=== PATIENT | male | born 1965 ===

== ENCOUNTER → 2021-06-18 | Outpatient (CLI) | payer MEDICARE ==
[~2021-06-18] MED LIST: ASPI-630 PO; ATOR10TA60 PO; CLOP75TA PO; INSU100V13 SQ; INSU100V6 SQ; LIPA1CAP2 PO; MAGN400C PO; METO25TA4 PO; MUPI22OI2 TP; OMEP20CA16 PO; POTA-121 PO
--- NOTE | 2021-06-18 13:00 | PDOC1 ---
INITIAL PAIN CONSULT DATE OF SERVICE: DOS: DATE: 06/18/21 TIME: 12:53 CHIEF COMPLAINT: Chief Complaint: Low back and left lower extremity pain HISTORY OF PRESENT ILLNESS: 55-year-old male presents history of pain low back left lower extremity for about 4 months or so not result of any specific injury activities were but recently had extensive bilateral revascularization in the femoral-popliteal and tibial distributions which is still healing to some extent but doing much better patient reports his feet were immediately more warm with much better perfusion and decrease in pain but he has a constant tingling down his left foot and the pain is now becoming more noticeable in the low back radiating the posterior gluteus posterior lateral thigh posterior calf into the ankle different than what it was prior to his vascular bypass. Patient reports now the pain is sharp and stabbing in the back intermittent intensity worse with walking standing changing positions gets better with sitting or resting worse with standing walking or standing in 1 place patient reports wakes him sleep about 3-4 times a night can affect his bowel bladder control but no incontinence just urgency. Patient reports does affect his body walk significantly the left leg when he can walk for 5 to 10 minutes he must sit down with the pain in the legs better than he starts over again that he gets up and walks again patient has had physical therapy and is currently just started just about a week ago but feels already that it may be slightly better patient has been taking oxycodone as well as Tylenol extra strength and gabapentin as well as which do help decrease the pain. Patient rates her disability rating 0-10 10 being the worst is a 6 with family home responsibilities and lack support activities 8 with recreation and social activity 10 with occupation section behavior 5 with self-care activities. Patient not had any diagnostic studies since the revascularization procedure. PAST MEDICAL HISTORY: PMH: ,Hypertension, type 1 diabetes, arthritis, neuropathy, pancreatitis, atrial fibrillation, alcoholism PREVIOUS SURGERIES: Past Surgical Hx: Bile duct stent placement 2014, bilateral lower extremity stents and revascularization January 2021 CURRENT MEDICATIONS: Current Meds: Active Scripts Medications Dose Route/Sig Max Daily Dose Days Date Category Humalog (Insulin Lispro) 100 Unit/1 Ml Vial Unknown Dose SQ TIDWMEALS 06/18/21 Reported Omeprazole 20 Mg Capsule.dr 1 Cap PO DAILY 06/18/21 Reported Mupirocin Ointment (Mupirocin) 22 Gm Oint...g. 1 Lauren TP TID 06/18/21 Reported Klor-Con M20 (Potassium Chloride) 20 Meq Tab.er.prt 1 Tab PO DAILY 30 06/18/21 Reported Aspirin 81 Mg Tab.chew 1 Tab PO DAILY 06/18/21 Reported Clopidogrel (Clopidogrel Bisulfate) 75 Mg Tablet 1 Tab PO DAILY 06/18/21 Reported Atorvastatin Calcium 10 Mg Tablet 1 Tab PO DAILY 06/18/21 Reported Magnesium (Magnesium Oxide) 400 Mg Capsule 1 Cap PO DAILY 30 06/18/21 Reported Levemir (Insulin Detemir) 100 Unit/1 Ml Vial 5 Unit SQ HS 06/18/21 Reported Jose Guadalupe Smith 6,000 Units Capsule (Lipase/Protease/Amylase) 1 Each Capsule. 1 Each PO TIDWMEALS 06/18/21 Reported Metoprolol Tartrate 25 Mg Tablet 1 Tab PO BID 06/18/21 Reported ALLERGIES; Allergies: Coded Allergies: citalopram (Verified Adverse Reaction, Unknown, 06/18/21) FAMILY HISTORY: Family Hx: No major medical problems or conditions that he is aware of. SOCIAL HISTORY: Social Hx: Patient has not had alcohol in over a year, smokes cigarettes less than a pack a day and has for the past 20+ years single lives locally in [facility] REVIEW OF SYSTEMS: ROS: Positive for those items mentioned in history of present illness, all systems are reviewed, otherwise negative ,and are complete full and well-documented on patient's chart. PHYSICAL EXAM: VS: Blood pressure 157/85 pulse 67 respirations 16 temperature 97.8 was Fahrenheit height is 5 foot 8 inches weight is 148 pounds PE: PHYSICAL EXAMINATION: GENERAL: The patient is awake, alert, oriented, appropriate, very pleasant in demeanor HEENT: Shows normocephalic, atraumatic. Extraocular movements are intact and symmetrical. Oral cavity: Mucous membranes moist and pink. NECK: Shows anterior throat supple without palpable lymphadenopathy noted. Swallow reflex symmetrical. CHEST: Shows normal on inspection. Breath sounds are clear bilaterally, distant but no rales rhonchi or wheezes auscultated. HEART: Shows S1, S2 clear. No murmurs auscultated. ABDOMEN: Soft, nontender, nondistended, obese. No palpable organomegaly is noted. No rebound or guarding demonstrated. BACK: Shows spine grossly in the midline. Normal-appearing cervical lordotic curvature. There is slightly increased thoracic kyphosis, some minor flattening of the lumbar lordotic curvature. Lumbar paraspinous muscles show symmetrical on inspection, on palpation shows some moderate tenderness diffusely throughout the upper, middle and lower distribution of the paraspinous muscles bilaterally and also into the lower thoracic paraspinous musculature, firm and tender, but without specific trigger points, without radiation of pain. The patient has good rotational motion of the lumbar spine, both laterally as well as extension and flexion without significant difficulty. No tenderness over the spinous processes, sacrum or sacroiliac regions. EXTREMITIES: Lower extremities show deep tendon reflexes 1 in the patellar and tendo calcaneus tendons. Motor exam is 5 on a scale of 5 with right dorsiflexion, extension, quadriceps and hamstring flexion and 4/5 on the left. Peripheral pulses are 1 posterior tibial. 1+ peripheral edema is noted bilaterally. Lower extremities are warm and dry to touch, equal in color and appearance. Patient has healing wounds on the medial aspect of the bilateral lower extremities without drainage or erythema. SKIN: Shows warm and dry, good turgor. No bruising throughout. IMPRESSION: Impression: 55-year-old male with approximate 4-month history increasing pain low back left lower extremity in a radicular fashion Status post revascularization bilateral lower extremities with good results Arthritis Hypertension Type 1 diabetes Atrial fibrillation Plan: Options were discussed with the patient occluding continued physical therapy could conservative management with medications as well as interventional techniques. Patient would like to pursue conservative therapies at this time and as he is only started his physical therapy 1 week ago we will give this more time to potentially improve his condition. If not significant improved after approximately a month of physical therapy patient will contact the office we did discuss potential interventional techniques at that time however will need to clear holding Plavix and will investigate that once physical therapy is had more time to work. Patient contact the office after approximate 4 weeks of physical therapy with progress note at that time. LASHON CESPEDES MD Jun 18, 2021 12:59
== END | disposition home or self-care (01) ==
LOC: PNCL 12:24
PROVIDERS: ATTEND Anesthesiology
DX: M54.50 Low back pain, unspecified (principal); M79.605 Pain in left leg; I10 Essential (primary) hypertension; I48.91 Unspecified atrial fibrillation; M19.90 Unspecified osteoarthritis, unspecified site; E10.40 Type 1 diabetes mellitus with diabetic neuropathy, unspecified; Z79.82 Long term (current) use of aspirin; Z79.4 Long term (current) use of insulin; Z79.899 Other long term (current) drug therapy; Z98.890 Other specified postprocedural states; Z88.8 Allergy status to other drugs, medicaments and biological substances
CPT/HCPCS: 99205; G0463

== ENCOUNTER → 2021-07-05 | Outpatient (CLI) | payer MEDICARE ==
--- NOTE | 2021-07-05 10:05 | KCIC ---
Clinical indications: Screening for metal within the orbits prior to an MRI study. A single Barker view of the orbits was performed. Findings: No metallic foreign body is seen within either orbit. The maxillary and frontal sinuses are clear. The orbital floors appear symmetric and are intact. Impression: No metallic foreign body is identified within either orbit. Electronically signed by: Greg Barbour MD (07/05/2021 10:02 AM) [id number]
--- NOTE | 2021-07-05 12:55 | KCIC ---
MRI of the lumbar spine without contrast 07/05/2021 CLINICAL HISTORY: Low back pain with bilateral leg pain. TECHNIQUE: Unenhanced T1-weighted and T2-weighted sagittal and axial and inversion recovery sagittal images of the lumbar spine were obtained. FINDINGS: Very mild S-shaped curvature of the thoracolumbar spine is seen. Degenerative signal change s are seen involving all of the disks of the lumbar spine. Degenerative signal changes are seen withi n the marrow surrounding these discs. Loss of height of the L4-5 and L5-S1 discs is noted. A 2.8 cm s omewhat oval-shaped area of increased signal intensity is seen involving the S2 vertebral body on the T2-weighted and inversion recovery images. This demonstrates decreased decreased signal intensity on the T1-weighted images. This likely represents a hemangioma. The conus medullaris is normal morpholo gy, position, and signal characteristics. At the L1-2 disc space there is a minimal generalized disc bulge. Degenerative changes are seen invol ving the facet joints bilaterally. These findings do not result in significant central spinal canal o r neural foraminal stenosis. At the L2-3 disc space there is a mild to moderate generalized disc bulge. Degenerative changes are s een involving the facet joints bilaterally. There is mild ligamentum flavum hypertrophy bilaterally. There is prominence of posterior epidural fat. These findings when combined result in mild central sp inal canal stenosis. No neural foraminal stenosis is seen. At the L3-4 disc space there is a mild to moderate generalized disc bulge. Degenerative changes are s een involving the facet joints bilaterally. There is mild ligament flavum hypertrophy bilaterally. Th ere are small facet joint effusions bilaterally. These findings when combined result in moderate cent ral spinal canal stenosis. No neural foraminal stenosis is seen. At the L4-5 disc space is a moderate generalized disc bulge. This is eccentric to the right. Degenera tive changes are seen involving the facet joints bilaterally. There is mild ligament flavum hypertrop hy bilaterally. There is prominence of posterior epidural fat. These findings when combined result in mild to moderate central spinal canal stenosis. No neural foraminal stenosis is seen. At the L5-S1 disc space there is a mild generalized disc bulge. Superimposed on this disc bulge is a right paracentral focal disc herniation. This measures 5 mm in AP diameter. Degenerative changes are seen involving the facet joints bilaterally. There is mild ligamentum flavum hypertrophy bilaterally. These findings when combined result in mild to moderate right greater than left central spinal canal stenosis. The disc herniation appears to impinge upon the right S1 nerve root within the right later al aspect of the central spinal canal. No neural foraminal stenosis is seen. IMPRESSION: The changes of degenerative disc disease are seen throughout the lumbar spine. These find ings results in mild central spinal canal stenosis at L2-3, moderate central spinal canal stenosis at L3-4, mild to moderate central spinal canal stenosis at L4-5 and mild to moderate right greater than left central spinal canal stenosis at L5-S1. At the L5-S1 disc space a right paracentral focal disc herniation is seen which appears to impinge upon the right S1 nerve root within the right lateral asp ect of the central spinal canal. Electronically signed by: Kar Gil MD (07/05/2021 12:52 PM) [id number]
== END | disposition home or self-care (01) ==
LOC: KCIC MRI 09:16
PROVIDERS: ATTEND Anesthesiology
DX: M51.16 Intervertebral disc disorders with radiculopathy, lumbar region (principal); M48.061 Spinal stenosis, lumbar region without neurogenic claudication; M51.27 Other intervertebral disc displacement, lumbosacral region; M43.8X5 Other specified deforming dorsopathies, thoracolumbar region
CPT/HCPCS: 70030; 72148

== ENCOUNTER → 2021-07-26 | Outpatient (CLI) | payer MEDICARE ==
[~2021-07-26] MED LIST changes: +APIX5TAB PO
--- NOTE | 2021-07-26 11:50 | PDOC ---
Progress Note - Pain Clinic Date of Service: DOS: DATE: 07/26/21 TIME: 11:46 Diagnosis: Dx: Lumbar radiculopathy and lumbar degenerative disc disease History or Present Illness: HPI: 56-year-old male returns for follow-up status post initial evaluation patient has completed physical therapy now and reports somewhat better with about 20% with the pain in her low back and bilateral lower extremity slightly worse on the right than the left we did also have an MRI scan which we discussed with him in detail today showing mild central spinal canal stenosis at L2-3 moderate central spinal canal stenosis L3-4 moderate central spinal canal stenosis L4-5 mild to moderate right greater than left central spinal canal stenosis at L5-S1 with a right paracentral disc herniation at L5-S1 appears to impinge upon the right S1 nerve root. Patient reports still significant pain in the low back more in the right than the left lower extremities posterior gluteus posterior thigh posterior calf as well as lateral thighs anterior calf patient ports worse with walking standing and while the physical therapy did help to strengthen his legs fairly significantly his pain is still fairly unchanged. Patient reports still wakes him from sleep about once every 6 hours or so but most nights he sleeps fairly well worse with walking standing changing positions. Patient reports pain is 8 on scale 10 is worse over the past week 6 on average for its least and is a 4 today. Patient reports that sharp tight in the back shooting in the legs and tingling burning some cramping stabbing pain as well in the lower extremities again more on the right than the left. Patient reports no bowel or bladder incontinence. Physical Exam: VS: Blood pressure 160/90 pulse 60 respiration temperature 97.8 F weight 152 pounds PE: PHYSICAL EXAMINATION: GENERAL: The patient is awake, alert, oriented, appropriate, very pleasant in demeanor HEENT: Shows normocephalic, atraumatic. Extraocular movements are intact and symmetrical. Oral cavity: Mucous membranes moist and pink. Dentition is intact. NECK: Shows anterior throat supple without palpable lymphadenopathy noted. Swallow reflex symmetrical. CHEST: Shows normal on inspection. Breath sounds are clear bilaterally, distant but no rales or rhonchi auscultated. HEART: Shows S1, S2 clear. No murmurs auscultated. ABDOMEN: Soft, nontender, nondistended. No palpable organomegaly is noted. BACK: Shows spine grossly in the midline. Normal-appearing cervical lordotic curvature. There is increased thoracic kyphosis, some flattening of the lumbar lordotic curvature. Lumbar paraspinous muscles show symmetrical on inspection, on palpation shows some moderate tenderness diffusely throughout the upper, middle and lower distribution of the paraspinous muscles, but without specific trigger points, without radiation of pain. The patient has good rotational motion of the lumbar spine, both laterally as well as extension and flexion without significant difficulty. EXTREMITIES: Lower extremities show deep tendon reflexes 1+ in the patellar and tendo calcaneus tendons. Motor exam is 4 on a scale of 5 with right dorsifl exion, extension, quadriceps and hamstring flexion and 4/5 on the left. Peripheral pulses are 1+ posterior tibial. No peripheral edema is noted bilaterally. Lower extremities are warm and dry to touch, equal in color and appearance. SKIN: Shows warm and dry, good turgor. No edema. No sores, rashes or bruising throughout. Procedure: Procedure: Options were discussed with patient. Patient chart reviews his current medication regimen updated current review of systems updated today as well. We will check with patient's prescribing physician regarding holding his Eliquis for 3 days prior to potential interventional techniques. Patient continue with the Eliquis until we get clearance from his prescribing physician and will contact him at that time. In the meantime, patient continue with stretching strength exercises as tolerated. Medication Injected: Med Injected: None Condition at Discharge: Condition at Discharge: Condition at discharge is stable. LASHON CESPEDES MD Jul 26, 2021 11:50
== END | disposition home or self-care (01) ==
LOC: PNCL 10:45
PROVIDERS: ATTEND Anesthesiology
DX: M51.16 Intervertebral disc disorders with radiculopathy, lumbar region (principal); Z79.82 Long term (current) use of aspirin; Z79.4 Long term (current) use of insulin; Z79.899 Other long term (current) drug therapy; Z88.8 Allergy status to other drugs, medicaments and biological substances
CPT/HCPCS: 99212; G0463

== ENCOUNTER → 2021-08-03 | Outpatient (CLI) | payer MEDICARE ==
[~2021-08-03] MED LIST changes: +IOHEXOL 180 MG/ML 10 ML VIAL. ONE; +methylPREDNISolone ACETATE 40 MG/ML VIAL. ONE; +methylPREDNISolone ACETATE 80 MG/ML VIAL. ONE
--- NOTE | 2021-08-03 15:59 | PDOC ---
Progress Note - Pain Clinic Date of Service: DOS: DATE: 08/03/21 TIME: 15:56 Diagnosis: Dx: Lumbar radiculopathy with lumbar degenerative disc History or Present Illness: HPI: 56-year-old male returns for follow-up status post evaluation patient with pain low back and bilateral lower extremities worse on the left than the right but present bilaterally patient reports still significant pain with walking standing changing positions better with sitting or laying down generally not awaken from sleep at night patient reports pain in the low back and bilateral lower extremities again worse on the left side posterior gluteus posterior lateral thigh low anterior thigh anteromedial thigh medial lower leg into the feet and ankles bilaterally again worse on the left patient reports is an 8 on scale 10 is worse over the past week 6 on average/and is a 6 today. Patient tried the sharp shooting tingling at times cramping stabbing the back and radiating the lower extremities patient reports no bowel or bladder incontinence. Patient reports has been off of his Eliquis now for 6 days. Physical Exam: VS: Blood pressure is 161/72 pulse 59 respirations 18 temperature 97.7 F height is 5 foot 8 inches weight is 150 PE: PHYSICAL EXAMINATION: GENERAL: The patient is awake, alert, oriented, appropriate, very pleasant in demeanor HEENT: Shows normocephalic, atraumatic. Extraocular movements are intact and symmetrical. Oral cavity: Mucous membranes moist and pink. Dentition is intact. NECK: Shows anterior throat supple without palpable lymphadenopathy noted. Swallow reflex symmetrical. CHEST: Shows normal on inspection. Breath sounds are clear bilaterally, distant and coarse but no rales or rhonchi. HEART: Shows S1, S2 clear. No murmurs auscultated. ABDOMEN: Soft, nontender, nondistended. No palpable organomegaly is noted. BACK: Shows spine grossly in the midline. Normal-appearing cervical lordotic curvature. There is slightly increased thoracic kyphosis, some minor flattening of the lumbar lordotic curvature. Lumbar paraspinous muscles show symmetrical on inspection, on palpation shows some moderate tenderness diffusely throughout the upper, middle and lower distribution of the paraspinous muscles without specific trigger points, without radiation of pain. The patient has good rotational motion of the lumbar spine, both laterally as well as extension and flexion without significant difficulty. EXTREMITIES: Lower extremities show deep tendon reflexes 1+ in the patellar and tendo calcaneus tendons. Motor exam is 4 on a scale of 5 with right dorsiflexion, extension, quadriceps and hamstring flexion and 4/5 on the left. Peripheral pulses are 1+ posterior tibial. No peripheral edema is noted bilaterally. Lower extremities are warm and dry. SKIN: Shows warm and dry, good turgor. No edema. No sores, rashes or bruising throughout. Procedure: Procedure: Options were discussed with the patient. Patient's old chart was reviewed as his current medication regimen updated current review of systems updated today as well. We will proceed with a lumbar epidural steroid injection stable f luoroscopic guidance risks were discussed including but not limited to: Bleeding, infection, possibility of epidural hematoma and subsequent neurological compromise, dural puncture, headaches, spinal cord and/or nerve damage, side effects of steroid medication, and poor results regarding pain control. Patient understands and wished to proceed. Patient will return to the clinic in approximately 3 weeks for follow-up, was counseled return appointment, activity level, and side effect to be aware of. Medication Injected: Med Injected: Procedure is lumbar epidural steroid injection under local anesthetic using sterile prep and drape at the L4-5 level using C-arm fluoroscopic guidance in both AP and lateral views medications injected is 120 mg Depo-Medrol +10mL preservative-free normal saline and 2 mL contrast- condition at discharge is stable patient tolerated procedure well had no complications. Condition at Discharge: Condition at Discharge: Condition at discharge stable, patient tolerated procedure well and had no complications. LASHON CESPEDES MD Aug 03, 2021 15:59
--- NOTE | 2021-08-03 15:59 | PDOC4 ---
Procedure Note: ICD 10 Code: ICD 10 Code: M54.16 M51.36 M51.87 Procedure Note: Patient was consented for lumbar epidural steroid injection with fluoroscopic guidance risks were discussed including but not limited to: Bleeding, infection, possibility of epidural hematoma and subsequent neurological compromise, dural p uncture, headaches, spinal cord and/or nerve damage, side effects of steroid medication, and poor results regarding pain control. Patient understands and wished to proceed. Procedure is lumbar epidural steroid injection under local anesthetic using sterile prep and drape at the L4-5 level using C-arm fluoroscopic guidance in both AP and lateral views medications injected is 120 mg Depo-Medrol +10mL preservative-free normal saline and 2 mL contrast- condition at discharge is stable patient tolerated procedure well had no complications. LASHON CESPEDES MD Aug 03, 2021 15:59
== END | disposition home or self-care (01) ==
LOC: PNCL 14:34
PROVIDERS: ATTEND Anesthesiology
DX: M51.16 Intervertebral disc disorders with radiculopathy, lumbar region (principal); G89.29 Other chronic pain
CPT/HCPCS: 62323; J1030; J1040; Q9965

== ENCOUNTER 2022-02-01 11:17 | Emergency (ER) | payer MEDICARE ==
[~2022-02-01] VITALS: Ht 172.7 cm; Wt 63.6 kg
[~2022-02-01 11:17] MED LIST changes: +APIX2.5T PO; +BUPR150T8 PO; +DAPT350V IV; +GABA300C18 PO; -IOHEXOL 180 MG/ML 10 ML VIAL. ONE; +MERO500V24 IV; +OXYC1TAB15 PO; -methylPREDNISolone ACETATE 40 MG/ML VIAL. ONE; -methylPREDNISolone ACETATE 80 MG/ML VIAL. ONE
[2022-02-01 12:34] LABS: BASO # 0.1 x10^3/uL (0.0-0.2); BASO % 1 % (0-3); EOS # 0.9 x10^3/uL (0.0-0.7); EOS % 8 % (0-3); HEMATOCRIT 23.3 % (39.0-53.0); HEMOGLOBIN 7.9 g/dL (13.0-17.5); LYMPH # 1.1 x10^3/uL (1.0-4.8); LYMPH % 9 % (24-48); MEAN CORPUSCULAR HEMOGLOBIN 30 pg (25-35); MEAN CORPUSCULAR HGB CONC 34 g/dL (31-37); MEAN CORPUSCULAR VOLUME 90 fL (79-100); MONO # 1.3 x10^3/uL (0.0-1.1); MONO % 11 % (0-9); NEUT # 8.5 x10^3/uL (1.8-7.7); NEUT % 71 % (31-73); PLATELET COUNT 362 x10^3/uL (140-400); RED CELL DISTRIBUTION WIDTH 15.5 % (11.5-14.5); WHITE BLOOD COUNT 11.9 x10^3/uL (4.0-11.0)
[2022-02-01] MEDS ORDERED: [UNRECOGNIZED DRUG - CODE] PO (12:54)
[2022-02-01 13:22] VITALS: BP 160/77
--- NOTE | 2022-02-01 16:07 | PHYS DOC ---
Past Medical History Past Medical History: DVT, Vascular Disease Past Surgical History: Other Additional Past Surgical Histo: Toes amputation Smoking Status: Current Some Day Smoker Alcohol Use: None General Adult EDM: Chief Complaint: WOUND CHECK HPI: HPI: 56-year-old male recent right lower extremity toe amputation and tib-fib bypass, presents with wound check given history of notable arterial bleeding from the wound 3 days ago. Patient denies fever, chills, chest pain, shortness of breath, nausea, vomiting, abdominal pain. Denies any new pain or swelling to the right lower extremity Review of Systems: Review of Systems: Constitutional: Denies fever or chills. [] Eyes: Denies change in visual acuity. [] HENT: Denies nasal congestion or sore throat. [] Respiratory: Denies cough or shortness of breath. [] Cardiovascular: Denies chest pain or edema. [] GI: Denies abdominal pain, nausea, vomiting, bloody stools or diarrhea. [] : Denies dysuria. [] Musculoskeletal: Denies back pain or joint pain. [] +RLE wound Integument: Denies rash. [] Neurologic: Denies headache, focal weakness or sensory changes. [] Endocrine: Denies polyuria or polydipsia. [] Lymphatic: Denies swollen glands. [] Psychiatric: Denies depression or anxiety. [] Heart Score: C/O Chest Pain: No Risk Factors: Risk Factors: DM, Current or recent (<one month) smoker, HTN, HLP, family history of CAD, obesity. Risk Scores: Score 0 - 3: 2.5% MACE over next 6 weeks - Discharge Home Score 4 - 6: 20.3% MACE over next 6 weeks - Admit for Clinical Observation Score 7 - 10: 72.7% MACE over next 6 weeks - Early Invasive Strategies Allergies: Allergies: Allergies Coded Allergies Type Severity Reaction Last Updated Verified citalopram Allergy Intermediate 01/17/22 Yes Physical Exam: PE: Constitutional: Well developed, well nourished, no acute distress, non-toxic appearance. [] HENT: Normocephalic, atraumatic, bilateral external ears normal, oropharynx moist, no oral exudates, nose normal. [] Eyes: PERRLA, EOMI, conjunctiva normal, no discharge. [] Neck: Normal range of motion, no tenderness, supple, no stridor. [] Cardiovascular:Heart rate regular rhythm, no murmur [] Lungs & Thorax: Bilateral breath sounds clear to auscultation [] Abdomen: Bowel sounds normal, soft, no tenderness, no masses, no pulsatile masses. [] Skin: Warm, dry, no erythema, no rash. [] Back: No tenderness, no CVA tenderness. [] Extremities: +RLE toe amputee and R tib/fib bypass wound, no active swelling or purulence or erythema or edema, No tenderness, no cyanosis, no clubbing, ROM intact, no edema. [] Neurologic: Alert and oriented X 3, normal motor function, normal sensory funct ion, no focal deficits noted. [] Psychologic: Affect normal, judgement normal, mood normal. [] Current Patient Data: Labs: Laboratory Tests Test 02/01/22 11:26 02/01/22 11:43 02/01/22 12:13 02/01/22 13:13 Glucose (Fingerstick) 43 mg/dL (70-99) *L 77 mg/dL (70-99) 81 mg/dL (70-99) White Blood Count 11.9 x10^3/uL (4.0-11.0) H Red Blood Count 2.60 x10^6/uL (4.30-5.70) L Hemoglobin 7.9 g/dL (13.0-17.5) L Hematocrit 23.3 % (39.0-53.0) L Mean Corpuscular Volume 90 fL (79-100) Mean Corpuscular Hemoglobin 30 pg (25-35) Mean Corpuscular Hemoglobin Concent 34 g/dL (31-37) Red Cell Distribution Width 15.5 % (11.5-14.5) H Platelet Count 362 x10^3/uL (140-400) Neutrophils (%) (Auto) 71 % (31-73) Lymphocytes (%) (Auto) 9 % (24-48) L Monocytes (%) (Auto) 11 % (0-9) H Eosinophils (%) (Auto) 8 % (0-3) H Basophils (%) (Auto) 1 % (0-3) Neutrophils # (Auto) 8.5 x10^3/uL (1.8-7.7) H Lymphocytes # (Auto) 1.1 x10^3/uL (1.0-4.8) Monocytes # (Auto) 1.3 x10^3/uL (0.0-1.1) H Eosinophils # (Auto) 0.9 x10^3/uL (0.0-0.7) H Basophils # (Auto) 0.1 x10^3/uL (0.0-0.2) Laboratory Tests 02/01/22 12:13 Vital Signs: Vital Signs Date Time Temp Pulse Resp B/P (MAP) Pulse Ox O2 Delivery O2 Flow Rate FiO2 02/01/22 13:22 97.9 80 15 160/77 (104) 100 Room Air 97.9 EKG: EKG: [] Radiology/Procedures: Radiology/Procedures: [] Course & Med Decision Making: Course & Med Decision Making Pertinent Labs and Imaging studies reviewed. (See chart for details) Additional Social History: PMD from non-affiliated facility. Patient Lives at home. Family History: Non-pertinent to today's complaint. Nursing Notes Reviewed Previous Medical Records requested via [facility] Web: Reviewed by me. EMERGENCY DEPARTMENT COURSE/ MEDICAL DECISION MAKING: I examined the patient, evaluated and addressed patient's chief complaint. Patient evaluated by wound care PA here. Wound was closely inspected and placed with new dressing. Appears to be healing appropriately. Unlikely cellulitis or surgical complication. No active bleeding. CBC showing anemia to 7.9 which is a almost a two-point drop from hemoglobin 10.1 approximately 8 days ago. Patient vitals within normal. Patient denies any chest pain, shortness of breath, palpitations or diaphoresis. Patient feels at his baseline. Patient does not meet requirement for transfusion. Patient has close follow-up with wound care and PMD which is coming up the following week. Patient asking for refill of his [place] given the manipulation of his wound today. Stable for DC home with short prescription for [place] and routine PMD and wound care follow-up. Return precautions given. The patient understands that todays Emergency Department evaluation does not represent a comprehensive medical workup, and it is impossible to diagnose all possible illnesses from a single Emergency Department visit. The patient verbalized understanding that it is absolutely necessary to have follow-up with regular primary care physician within 1-2 days for more detailed workup and continued exam. I explained the findings and plan to the patient, who expressed verbal understanding and agreed with plan for discharge and follow up. The patient was given after care instructions and welcomed to return to the ED for re-evaluation in 8-12 hours, especially for any new or worsening symptoms. Patient's blood pressure was elevated (>120/80) but appears stable without penny dence of end organ damage, malignant hypertension, hypertensive emergency or urgency. The patient was counseled about the risks of hypertension and urged to pursue outpatient monitoring and therapy within a week with their primary care physician. The patient was stable at the time of discharge. DIAGNOSTIC IMPRESSION: 1. RLE wound check 2. toe amputee 3. s/p tib/fib bypass DISPOSITION: Disposition: Discharge Home. Condition: Improved Follow-Up: PMD, wound care Prescriptions: [place] Return to the Emergency Department for new or worsening symptoms. Hari Disclaimer: Hari Disclaimer: This electronic medical record was generated, in whole or in part, using a voice recognition dictation system. Departure Departure Impression: Primary Impression: Anemia Additional Impression: Leg wound, right Disposition: HOME / SELF CARE / HOMELESS Condition: STABLE Patient Instructions: Wound Care, [id number], Wound Check Additional Instructions: Please follow up with your specialists as scheduled. Scripts Oxycodone HCl/Acetaminophen (Oxycodon-Acetaminophen 2.5-300) 1 Each Tablet 1 EACH PO Q6HRS PRN for PAIN for 4 Days, #16 TAB Prov: SAGE SWANSON MD 02/01/22 SAGE SWANSON MD February 01, 2022 16:07
== END 2022-02-01 13:20 | disposition home or self-care (01) ==
LOC: ER 11:17
DX: S81.801A Unspecified open wound, right lower leg, initial encounter (principal); D64.9 Anemia, unspecified; Z89.421 Acquired absence of other right toe(s); Z86.718 Personal history of other venous thrombosis and embolism; Z88.8 Allergy status to other drugs, medicaments and biological substances; X58.XXXA Exposure to other specified factors, initial encounter; Y93.89 Activity, other specified; Y92.89 Other specified places as the place of occurrence of the external cause; Y99.8 Other external cause status
CPT/HCPCS: 36415; 82962; 85025; 99284